=== PATIENT | male | born 1960 | race Caucasian/White ===

== ENCOUNTER 2016-09-06 09:04 | Outpatient (RCR) | payer OTHER ==
--- OUTSIDE RECORDS SUMMARY | 2016-08-30 08:42 | XMS REPORT | Continuity of Care Document ---
Author Author [facility] Organization [facility] Address Unknown Phone Unavailable Care Team Providers Care Missile Mechanic Name Role Phone Ivan Howard PCP [phone] Source Comments Some departments are not documenting in the electronic medical record. If you do not see the information that you expected, contact Release of Information in the Health Information Management department at [phone] for further assistance in locating additional records.[facility] Active Allergies and Adverse Reactions No Known Allergies Current Medications Prescription Sig. Disp. Refills Start End Date Status Date celecoxib (CELEBREX) 200 Take 200 mg by mouth Active mg capsule daily. folic acid (FOLVITE) 1 mg Take 1 mg by mouth daily. Active tablet cholecalciferol (VITAMIN Take 1,000 Units by mouth Active D-3) 1,000 units tablet daily. cyanocobalamin (vitamin Take by mouth daily. Active B-12) (VITAMIN B-12) 1,000 mcg/mL drop flecainide (TAMBOCOR) 50 Take 1 Tab by mouth every 60 Tab 6 12/16/19 Active mg tablet 12 hours. 16 Active Problems Problem Noted Date Near syncope 12/19/2015 SVT (supraventricular tachycardia) (HCC) 10/07/2015 Tachycardia 09/14/2015 Palpitations 09/14/2015 Atrial tachycardia (HCC) 09/14/2015 Overview: 04/22/15: Holter: NSR to bradycardia on holter, PAC's. PAT on holter when sleeping. 05/18/15: Echo: LA size 4cm. LV function normal, EF 60%. Mild MR and TR. PA pressure 30mmHg. 12/15/2015 Attempted SVT RFA Chest pain 09/14/2015 Social History Tobacco Use Types Packs/Day Years Used Date Former Smoker Cigarettes 1.5 30 Smokeless Tobacco: Never Used Comments: Quit in 2011 Alcohol Use Drinks/Week oz/Week Comments No Last Filed Vital Signs Vital Sign Reading Time Taken Blood Pressure 128/80 12/16/2015 7:43 AM DYE WEIGHER HELPER Pulse 54 12/16/2015 7:43 AM DYE WEIGHER HELPER Temperature 36.7 C (98.1 F) 12/15/2015 10:28 PM DYE WEIGHER HELPER Respiratory Rate - - Height 1.778 m (5' 10") 12/15/2015 3:07 PM DYE WEIGHER HELPER Weight 109.77 kg (242 lb) 12/15/2015 3:07 PM DYE WEIGHER HELPER Body Mass Index 34.72 12/15/2015 3:07 PM DYE WEIGHER HELPER Oxygen Saturation 97% 12/16/2015 7:43 AM DYE WEIGHER HELPER Plan of Care Health Maintenance Due Date Last Done Comments Hepatitis C Screening 1959 Physical (Comprehensive) 1966 Exam Pertussis Vaccine 1970 Tetanus Vaccine 1976 Colorectal Cancer 2009 Screening Influenza Vaccine 06/28/2016 Results from Last 3 Months Not on file
[2016-08-30 08:54] LABS: BASOPHILS # (AUTO) 0.1 10^3/uL (0.0-0.1); BASOPHILS % (AUTO) 1 % (0-10); EOSINOPHILS # (AUTO) 0.2 10^3/uL (0.0-0.3); EOSINOPHILS % (AUTO) 3 % (0-10); LYMPHOCYTES # (AUTO) 1.2 X 10^3 (1.0-4.0); LYMPHOCYTES % (AUTO) 21 % (12-44); MEAN CORPUSCULAR HEMOGLOBIN 28 PG (25-34); MEAN CORPUSCULAR HGB CONC 34 G/DL (32-36); MEAN CORPUSCULAR VOLUME 84 FL (80-99); MEAN PLATELET VOLUME 10.7 FL (7.4-10.4); MONOCYTES # (AUTO) 0.5 X 10^3 (0.0-1.0); MONOCYTES % (AUTO) 9 % (0-12); NEUTROPHILS # (AUTO) 3.9 X 10^3 (1.8-7.8); NEUTROPHILS % (AUTO) 66 % (42-75); PLATELET COUNT 178 10^3/uL (130-400); RED BLOOD COUNT 5.51 10^6/uL (4.35-5.85); RED CELL DISTRIBUTION WIDTH 14.5 % (10.0-14.5); WHITE BLOOD COUNT 5.9 10^3/uL (4.3-11.0)
[2016-08-30 09:20] LABS: ALANINE AMINOTRANSFERASE 49 U/L (0-55); ALBUMIN 4.2 G/DL (3.2-4.5); ANION GAP 10 MMOL/L (5-14); ASPARTATE AMINO TRANSFERASE 44 U/L (5-34); BILIRUBIN,TOTAL 0.9 MG/DL (0.1-1.0); BLOOD UREA NITROGEN 21 MG/DL (7-18); BUN/CREATININE RATIO 25; CALCIUM 9.3 MG/DL (8.5-10.1); CARBON DIOXIDE 22 MMOL/L (21-32); CHLORIDE 108 MMOL/L (98-107); CREATININE SERUM 0.85 MG/DL (0.60-1.30); GFR ESTIMATED > 60; GLUCOSE 104 MG/DL (70-105); LACTATE DEHYDROGENASE 290 U/L (125-220); SODIUM 140 MMOL/L (135-145); TOTAL PROTEIN 6.3 G/DL (6.4-8.2)
[2016-09-04 08:39] LABS: 5 HIAA SEROTONIN URINE MG/L 4.2 MG/L; 5 HIAA SEROTONIN URINE RATIO 2 mg/gCR (0-14); 5HIAA CREATININE 218 MG/DL
[2016-09-04 08:40] LABS: 5 HIAA URINE INTERPRETATION SEE FOOTNOTE
[~2016-09-06 09:04] MED LIST: CELE200C PO
[2016-10-17] MEDS ORDERED: ASPI-586 PO (10:39)
[2016-10-17] MEDS ORDERED: CHOL2000 PO (10:39)
[2016-10-17] MEDS ORDERED: FOLI0.8T PO (10:39)
[2016-10-17] MEDS ORDERED: OMEG1CAP58 PO (10:39)
[2016-10-17] MEDS ORDERED: POTA99TA21 PO (10:39)
[2016-10-17] MEDS ORDERED: FAMO-119 PO (10:39)
[2016-10-17] MEDS ORDERED: TICA90TA PO (10:39)
[2016-10-17] MEDS ORDERED: ATOR40TA70 PO (10:39)
[2016-10-19] MEDS ORDERED: PANT40TA3 PO (09:04)
== END 2016-11-28 | disposition home or self-care (01) ==
LOC: ONC 09:04
PROVIDERS: ATTEND Internal Medicine Hematology & Oncology
DX: C7A.098 Malignant carcinoid tumors of other sites (principal)
CPT/HCPCS: 36415; 80053; 83497; 83615; 85025; 86316; 99213

== ENCOUNTER 2017-03-07 09:38 | Outpatient (RCR) | payer OTHER ==
[2017-02-18 10:28] LABS: BASOPHILS # (AUTO) 0.1 10^3/uL (0.0-0.1); BASOPHILS % (AUTO) 2 % (0-10); EOSINOPHILS # (AUTO) 0.1 10^3/uL (0.0-0.3); EOSINOPHILS % (AUTO) 2 % (0-10); LYMPHOCYTES # (AUTO) 1.2 X 10^3 (1.0-4.0); LYMPHOCYTES % (AUTO) 22 % (12-44); MEAN CORPUSCULAR HEMOGLOBIN 28 PG (25-34); MEAN CORPUSCULAR HGB CONC 33 G/DL (32-36); MEAN CORPUSCULAR VOLUME 84 FL (80-99); MEAN PLATELET VOLUME 10.5 FL (7.4-10.4); MONOCYTES # (AUTO) 0.5 X 10^3 (0.0-1.0); MONOCYTES % (AUTO) 9 % (0-12); NEUTROPHILS # (AUTO) 3.7 X 10^3 (1.8-7.8); NEUTROPHILS % (AUTO) 66 % (42-75); PLATELET COUNT 185 10^3/uL (130-400); RED BLOOD COUNT 5.64 10^6/uL (4.35-5.85); RED CELL DISTRIBUTION WIDTH 14.5 % (10.0-14.5); WHITE BLOOD COUNT 5.6 10^3/uL (4.3-11.0)
[2017-02-18 10:56] LABS: ALANINE AMINOTRANSFERASE 44 U/L (0-55); ALBUMIN 4.5 G/DL (3.2-4.5); ANION GAP 7 MMOL/L (5-14); ASPARTATE AMINO TRANSFERASE 31 U/L (5-34); BILIRUBIN,TOTAL 1.2 MG/DL (0.1-1.0); BLOOD UREA NITROGEN 20 MG/DL (7-18); BUN/CREATININE RATIO 22; CALCIUM 9.5 MG/DL (8.5-10.1); CARBON DIOXIDE 28 MMOL/L (21-32); CHLORIDE 105 MMOL/L (98-107); CREATININE SERUM 0.92 MG/DL (0.60-1.30); GFR ESTIMATED > 60; GLUCOSE 107 MG/DL (70-105); LACTATE DEHYDROGENASE 267 U/L (125-220); POTASSIUM 4.7 MMOL/L (3.6-5.0); SODIUM 140 MMOL/L (135-145)
[2017-02-25 08:15] LABS: 5 HIAA SEROTONIN URINE MG/L 3.9 MG/L; 5 HIAA SEROTONIN URINE RATIO 2 mg/gCR (0-14); 5HIAA CREATININE 193 MG/DL; CREATININE SEROTONIN 2220 H MG/D (800-2100)
[2017-02-25 08:16] LABS: 5 HIAA URINE INTERPRETATION SEE FOOTNOTE
[~2017-03-07 09:38] MED LIST changes: +ASPI-586 PO; +ATOR40TA70 PO; +CHOL2000 PO; +FAMO-119 PO; +FOLI0.8T PO; +OMEG1CAP58 PO; +PANT40TA3 PO; +POTA99TA21 PO; +TICA90TA PO
== END 2017-05-19 | disposition home or self-care (01) ==
LOC: ONC 09:38
PROVIDERS: ATTEND Internal Medicine Hematology & Oncology
DX: C7A.098 Malignant carcinoid tumors of other sites (principal); M45.9 Ankylosing spondylitis of unspecified sites in spine; I47.1 Supraventricular tachycardia; I25.10 Atherosclerotic heart disease of native coronary artery without angina pectoris; Z79.899 Other long term (current) drug therapy
CPT/HCPCS: 36415; 80053; 83497; 83615; 85025; 86316; 99213

== ENCOUNTER → 2017-09-20 | Outpatient (CLI) | payer OTHER ==
[2017-09-22 14:29] LABS: NUMBER HOURS COLLECTED 24 HOURS; URINE VOLUME REF 2125 ML
[2017-09-24 07:26] LABS: 5 HIAA SEROTONIN URINE MG/L 2.3 MG/L; 5 HIAA SEROTONIN URINE RATIO 2 mg/gCR (0-14); 5HIAA CREATININE 93 MG/DL; CREATININE SEROTONIN 1976 MG/D (800-2100)
[2017-09-24 07:27] LABS: 5 HIAA URINE INTERPRETATION SEE FOOTNOTE
== END ==
LOC: LAB 10:52
PROVIDERS: ATTEND Internal Medicine Hematology & Oncology
DX: C7A.098 Malignant carcinoid tumors of other sites (principal); M45.9 Ankylosing spondylitis of unspecified sites in spine
CPT/HCPCS: 36415; 83497

== ENCOUNTER 2017-09-24 08:44 | Outpatient (RCR) | payer OTHER ==
[2017-09-18 12:00] LABS: BASOPHILS # (AUTO) 0.1 10^3/uL (0.0-0.1); BASOPHILS % (AUTO) 1 % (0-10); EOSINOPHILS # (AUTO) 0.1 10^3/uL (0.0-0.3); EOSINOPHILS % (AUTO) 2 % (0-10); HEMATOCRIT 46 % (40-54); HEMOGLOBIN 15.2 G/DL (13.3-17.7); LYMPHOCYTES # (AUTO) 1.4 X 10^3 (1.0-4.0); LYMPHOCYTES % (AUTO) 23 % (12-44); MEAN CORPUSCULAR HEMOGLOBIN 28 PG (25-34); MEAN CORPUSCULAR HGB CONC 33 G/DL (32-36); MEAN CORPUSCULAR VOLUME 85 FL (80-99); MEAN PLATELET VOLUME 10.7 FL (7.4-10.4); MONOCYTES # (AUTO) 0.5 X 10^3 (0.0-1.0); MONOCYTES % (AUTO) 7 % (0-12); NEUTROPHILS # (AUTO) 4.1 X 10^3 (1.8-7.8); NEUTROPHILS % (AUTO) 67 % (42-75); PLATELET COUNT 165 10^3/uL (130-400); RED BLOOD COUNT 5.39 10^6/uL (4.35-5.85); RED CELL DISTRIBUTION WIDTH 13.7 % (10.0-14.5); WHITE BLOOD COUNT 6.1 10^3/uL (4.3-11.0)
[2017-09-18 12:17] LABS: ALANINE AMINOTRANSFERASE 24 U/L (0-55); ALBUMIN 4.2 GM/DL (3.2-4.5); ALKALINE PHOSPHATASE 77 U/L (40-136); BILIRUBIN,TOTAL 0.9 MG/DL (0.1-1.0); BUN/CREATININE RATIO 23; CALCIUM 9.5 MG/DL (8.5-10.1); CARBON DIOXIDE 25 MMOL/L (21-32); CHLORIDE 109 MMOL/L (98-107); CREATININE SERUM 0.92 MG/DL (0.60-1.30); GFR ESTIMATED > 60; GLUCOSE 109 MG/DL (70-105); POTASSIUM 4.6 MMOL/L (3.6-5.0); SODIUM 142 MMOL/L (135-145); TOTAL PROTEIN 6.9 GM/DL (6.4-8.2)
== END 2017-12-17 | disposition home or self-care (01) ==
LOC: ONC 08:44
PROVIDERS: ATTEND Internal Medicine Hematology & Oncology
DX: C7A.098 Malignant carcinoid tumors of other sites (principal); M45.9 Ankylosing spondylitis of unspecified sites in spine; I47.1 Supraventricular tachycardia; I25.10 Atherosclerotic heart disease of native coronary artery without angina pectoris; Z79.899 Other long term (current) drug therapy
CPT/HCPCS: 80053; 83615; 85025; 86316; 99213

== ENCOUNTER → 2018-08-11 | Outpatient (CLI) | payer OTHER ==
[2018-08-11 09:53] LABS: BASOPHILS # (AUTO) 0.1 10^3/uL (0.0-0.1); BASOPHILS % (AUTO) 1 % (0-10); EOSINOPHILS # (AUTO) 0.2 10^3/uL (0.0-0.3); EOSINOPHILS % (AUTO) 3 % (0-10); HEMATOCRIT 46 % (40-54); HEMOGLOBIN 15.9 G/DL (13.3-17.7); LYMPHOCYTES # (AUTO) 1.3 X 10^3 (1.0-4.0); LYMPHOCYTES % (AUTO) 22 % (12-44); MEAN CORPUSCULAR HEMOGLOBIN 28 PG (25-34); MEAN CORPUSCULAR HGB CONC 35 G/DL (32-36); MEAN CORPUSCULAR VOLUME 82 FL (80-99); MEAN PLATELET VOLUME 10.8 FL (7.4-10.4); MONOCYTES # (AUTO) 0.4 X 10^3 (0.0-1.0); MONOCYTES % (AUTO) 7 % (0-12); NEUTROPHILS # (AUTO) 4.1 X 10^3 (1.8-7.8); NEUTROPHILS % (AUTO) 67 % (42-75); PLATELET COUNT 167 10^3/uL (130-400); RED CELL DISTRIBUTION WIDTH 14.2 % (10.0-14.5); WHITE BLOOD COUNT 6.2 10^3/uL (4.3-11.0)
[2018-08-11 10:52] LABS: ALANINE AMINOTRANSFERASE 32 U/L (0-55); ALBUMIN 4.5 GM/DL (3.2-4.5); ALKALINE PHOSPHATASE 61 U/L (40-136); BILIRUBIN,TOTAL 0.8 MG/DL (0.1-1.0); BUN/CREATININE RATIO 27; CALCIUM 9.5 MG/DL (8.5-10.1); CARBON DIOXIDE 20 MMOL/L (21-32); CHLORIDE 110 MMOL/L (98-107); CHOLESTEROL 108 MG/DL (< 200); CREATININE SERUM 0.88 MG/DL (0.60-1.30); GFR ESTIMATED > 60; GLUCOSE 102 MG/DL (70-105); HDL CHOLESTEROL 42 MG/DL (40-60); POTASSIUM 4.3 MMOL/L (3.6-5.0); SODIUM 141 MMOL/L (135-145); TRIGLYCERIDES 48 MG/DL (<150); VLDL CHOLESTEROL 10 MG/DL (5-40)
== END ==
LOC: LAB 09:37
PROVIDERS: ATTEND Family Medicine
DX: Z00.00 Encounter for general adult medical examination without abnormal findings (principal); E78.5 Hyperlipidemia, unspecified; K21.9 Gastro-esophageal reflux disease without esophagitis
CPT/HCPCS: 36415; 80053; 80061; 84443; 85025

== ENCOUNTER 2018-09-01 08:58 | Outpatient (RCR) | payer OTHER ==
[2018-08-11 09:51] LABS: BASOPHILS # (AUTO) 0.1 10^3/uL (0.0-0.1); BASOPHILS % (AUTO) 1 % (0-10); EOSINOPHILS # (AUTO) 0.2 10^3/uL (0.0-0.3); EOSINOPHILS % (AUTO) 3 % (0-10); HEMATOCRIT 46 % (40-54); HEMOGLOBIN 15.9 G/DL (13.3-17.7); LYMPHOCYTES # (AUTO) 1.3 X 10^3 (1.0-4.0); LYMPHOCYTES % (AUTO) 22 % (12-44); MEAN CORPUSCULAR HEMOGLOBIN 28 PG (25-34); MEAN CORPUSCULAR HGB CONC 35 G/DL (32-36); MEAN CORPUSCULAR VOLUME 82 FL (80-99); MEAN PLATELET VOLUME 10.8 FL (7.4-10.4); MONOCYTES # (AUTO) 0.4 X 10^3 (0.0-1.0); MONOCYTES % (AUTO) 7 % (0-12); NEUTROPHILS # (AUTO) 4.1 X 10^3 (1.8-7.8); NEUTROPHILS % (AUTO) 67 % (42-75); PLATELET COUNT 167 10^3/uL (130-400); RED CELL DISTRIBUTION WIDTH 14.2 % (10.0-14.5); WHITE BLOOD COUNT 6.2 10^3/uL (4.3-11.0)
[2018-08-11 10:10] LABS: ALANINE AMINOTRANSFERASE 33 U/L (0-55); ALBUMIN 4.5 GM/DL (3.2-4.5); ALKALINE PHOSPHATASE 65 U/L (40-136); BILIRUBIN,TOTAL 0.8 MG/DL (0.1-1.0); BUN/CREATININE RATIO 27; CALCIUM 9.5 MG/DL (8.5-10.1); CARBON DIOXIDE 21 MMOL/L (21-32); CHLORIDE 109 MMOL/L (98-107); CREATININE SERUM 0.91 MG/DL (0.60-1.30); GFR ESTIMATED > 60; GLUCOSE 102 MG/DL (70-105); POTASSIUM 4.4 MMOL/L (3.6-5.0); SODIUM 141 MMOL/L (135-145)
[2018-10-22] MEDS ORDERED: PANT40TA3 PO (15:36)
== END 2018-11-09 | disposition home or self-care (01) ==
LOC: ONC 08:58
PROVIDERS: ATTEND Internal Medicine Hematology & Oncology
DX: C7A.098 Malignant carcinoid tumors of other sites (principal); M45.9 Ankylosing spondylitis of unspecified sites in spine; I47.1 Supraventricular tachycardia; I25.10 Atherosclerotic heart disease of native coronary artery without angina pectoris; Z79.899 Other long term (current) drug therapy
CPT/HCPCS: 36415; 80053; 83497; 83615; 85025; 86316; 99213

== ENCOUNTER → 2018-10-13 | Outpatient (CLI) | payer OTHER ==
--- NOTE | 2018-10-08 22:04 | HISTORY AND PHYSICAL ---
DATE OF SERVICE: PANENDOSCOPY HISTORY AND PHYSICAL HISTORY OF PRESENT ILLNESS: The patient is a 58-year-old white male who has a past history of erosive esophagitis. It has also been 10 years since his first screening colonoscopy, which he reported unremarkable. I performed an EGD in 2016, at which time, he has noted to have LA grade B erosive esophagitis. He reports he still has reflux symptoms that wake him up at night if he eats too late at night. It happens a couple of times a month despite taking pantoprazole 40 mg each evening. He denies dysphagia, weight loss, melena or bright red blood per rectum. He reports that his weight has been stable. PAST MEDICAL HISTORY: Significant for coronary artery disease. He had three drug-eluting stents placed in the same artery in 2016. At that time, he had an estimated ejection fraction of 60%. 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 He completed a year of Brilinta and aspirin and now is on aspirin alone with no subsequent problems with acute coronary syndrome and he denies angina. He has history of hyperlipidemia, for which he takes atorvastatin. Past medical history is also significant for long-standing ankylosing spondylitis. He takes 200 mg of Celebrex daily for this with reasonable control of his symptoms. He has past history of SVT. They were unable to ablate of this. He has been able to take care of symptoms with home vagal maneuvers for the most part with use at least one short recurrence per month, but has not required emergency room visitation. 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 He had 30 plus pack year smoking history, but quit 5 years ago. He reports no significant alcohol intake. FAMILY HISTORY: Father is living at age of 94 with a history of skin cancer. Mother had apparent biliary tract cancer, living at the age of 88. PHYSICAL EXAMINATION: GENERAL: Reveals a pleasant white male, appears to be in no acute distress. VITAL SIGNS: Blood pressure was 130/64, weight 241.8 pounds, up 2 pounds from 2 years ago. HEENT: Oropharyngeal configuration is that of a Mallampati class 2. Pharynx reveals no evidence for erythema. CHEST: Clear to auscultation. CARDIOVASCULAR: Reveals a regular rate and rhythm without murmur, S3 or S4. ABDOMEN: Soft, supple without mass, organomegaly or tenderness. Bowel sounds are positive. EXTREMITIES: Reveal no cyanosis, clubbing or edema. ASSESSMENT AND PLAN: The patient is being set up for screening colonoscopy on 10/24/2018 as well as diagnostic EGD due to persistent reflux symptoms with past history of erosive esophagitis despite proton pump inhibitor therapy. Prep instructions with the Suprep kit were given and questions were answered. I thank you for the referral of this pleasant gentleman. Job ID: [id number] DocumentID: [id number] Dictated Date: 10/08/2018 20:59:45 Kiln Setter Date: 10/08/2018 22:03:42 Dictated By: MORGAN HAHN MD
== END ==
LOC: CARD 10:13
PROVIDERS: ATTEND Physician Assistant
DX: I25.10 Atherosclerotic heart disease of native coronary artery without angina pectoris (principal); R07.9 Chest pain, unspecified; I47.1 Supraventricular tachycardia; D3A.8 Other benign neuroendocrine tumors
CPT/HCPCS: 93306

== ENCOUNTER → 2018-10-15 | Outpatient (CLI) | payer OTHER ==
[~2018-10-15] VITALS: Ht 177.8 cm; Wt 111.6 kg
[~2018-10-15] MED LIST changes: +CATHETER FLUSH 10 ML SYR IV PRN
[2018-10-15 09:19] VITALS: BP 115/71
[2018-10-15 09:27] VITALS: BP 193/71
--- NOTE | 2018-10-15 18:43 | STRESS TEST ---
DATE OF SERVICE: 10/15/2018 EXERCISE MYOVIEW STRESS TEST REPORT REFERRING PHYSICIAN: Dr. Sorto. Baseline heart rate is 45. Baseline blood pressure 150/71. Baseline EKG sinus rhythm with no ischemic changes. In summary, the patient was injected with 10.41 mCi of technetium-99 Myoview and the resting images were obtained. Then, the patient started exercising with a baseline heart rate, blood pressure and EKG mentioned above. At minute 7 and 30 seconds, the patient was injected with 30.8 mCi of technetium-99 Myoview. The patient was able to exercise for a total of 8 minutes and 30 seconds on standard Betito protocol. With peak exercise level, EKG was showing [address] depression in II, III, aVF and [address] depression in V3, V4, V5 and V6. Blood pressure was 197/99. During recovery, heart rate and blood pressure returned to baseline. EKG returned to baseline. The resting and stressed images were reviewed and compared in the short axis, horizontal long axis, and vertical long axis views. Review of the images showed diaphragmatic attenuation with reversible ischemia involving the mid to apical anterolateral wall, subtle reversibility was noted. SSS is 2, SDS 2, TID value 1.03. On the gated images, the left ventricle appeared to be prominent with preserved systolic function. Calculated ejection fraction 65%. CONCLUSION: 1. Good exercise tolerance, a total of 8 minutes 30 seconds on standard Betito protocol, total of 10.3 METS achieving 91% of maximum expected heart rate. 2. Severe hypertensive response to exercise, returned to baseline during recovery. 3. EKG changes with exercise suggestive of ischemia. 4. Mild ischemic changes on SPECT images involving the mid to apical anterolateral wall. 5. Normal left ventricular size with normal contractility. Calculated ejection fraction 65%. Job ID: [id number] DocumentID: [id number] Dictated Date: 10/15/2018 13:24:58 Rehab Services Aide Date: 10/15/2018 18:43:13 Dictated By: MARCUS DYER MD
== END ==
LOC: CARD 07:46
PROVIDERS: ATTEND Internal Medicine Cardiovascular Disease
DX: I25.10 Atherosclerotic heart disease of native coronary artery without angina pectoris (principal); R07.9 Chest pain, unspecified; I47.1 Supraventricular tachycardia; D3A.8 Other benign neuroendocrine tumors
CPT/HCPCS: 78452; 93017

== ENCOUNTER 2018-10-22 15:30 | Outpatient (CLI) | payer OTHER ==
[~2018-10-22] VITALS: Ht 177.8 cm; Wt 109.3 kg
[~2018-10-22 15:30] MED LIST changes: -CATHETER FLUSH 10 ML SYR IV PRN
[2018-10-22] MEDS ORDERED: PANT40TA3 PO (15:36)
== END 2018-10-22 15:39 | disposition home or self-care (01) ==
LOC: PREOP 15:30
PROVIDERS: ATTEND Internal Medicine
DX: Z01.818 Encounter for other preprocedural examination (principal)

== ENCOUNTER 2018-10-24 07:28 | Day surgery (SDC) | payer OTHER ==
[~2018-10-24] VITALS: Ht 177.8 cm; Wt 109.3 kg
[2018-10-24] MEDS ORDERED: ATROPINE INJ 0.4 MG/ML SDV IV ONE ×2 (07:29→10:00)
[2018-10-24] MEDS ORDERED: D5 LR IV SOLUTION 1,000 ML IV ONE (07:32)
[2018-10-24] MEDS ORDERED: D5 LR IV SOLUTION 1,000 ML IV STA (07:33)
[2018-10-24 07:35] VITALS: BP 135/79
[2018-10-24] MEDS ORDERED: LIDOCAINE JELLY 2% 6 ML SYRINGE MM PRN (07:45)
[2018-10-24] MEDS ORDERED: MIDAZOLAM 2 MG/2 ML (VERSED) VIAL IVP ONE (07:45)
[2018-10-24] MEDS ORDERED: fentaNYL INJECTION 100 MCG/2 ML AMP IVP ONE (07:45)
[2018-10-24] MEDS ORDERED: MIDAZOLAM 2 MG/2 ML (VERSED) VIAL ONE ×3 (08:03→08:04)
[2018-10-24] MEDS ORDERED: fentaNYL INJECTION 100 MCG/2 ML AMP ONE (08:03)
[2018-10-24] MEDS ORDERED: LIDOCAINE JELLY 2% 6 ML SYRINGE ONE (08:03)
[2018-10-24] MEDS ORDERED: HURRICAINE EXT TUBE (BENZOCAINE) ONE (08:04)
--- NOTE | 2018-10-24 08:40 | Pre-Op Note & Conscious Sedat ---
Pre-Operative Progress Note H&P Reviewed The H&P was reviewed, patient examined and no changes noted. Date H&P Reviewed: Oct 24, 2018 Time H&P Reviewed: 07:45 Conscious Sedation Pre-Proced ASA Score 2 For ASA 3 and 4: Consider anesthesia and medical clearance. Also, for patients with a history of failed moderate sedation consider anesthesia. Airway Lungs Heart ASA score ASA 1: a normal healthy patient ASA 2: a patient with a mild systemic disease (mid diabetes, controlled hypertension, obesity ASA 3: a patient with a severe systemic disease that limits activity (angina , COPD, prior Myocardial infarction) ASA 4: a patient with an incapacitating disease that is a constant threat to life (CHF, renal failure) ASA 5: a moribund patient not expected to survive 24 hrs. (ruptured aneurysm) ASA 6: a declared brain patient whose organs are being harvested. For emergent operations, add the letter E after the classification Mallampati Classification Grade 2 Sedation Plan Analgesia, Amnesia, Plan communicated to team members, Discussed options with patient/fam, Discussed risks with patient/fam The patient is an appropriate candidate to undergo the planned procedure, sedation, and anesthesia. The patient immediately re-assessed prior to indication. MORGAN HAHN MD Oct 24, 2018 08:40
[2018-10-24 09:30] VITALS: BP 129/72
[2018-10-24] MEDS ORDERED: HURRICAINE EXT TUBE (BENZOCAINE) XX ONE (09:30)
[2018-10-24 10:00] VITALS: BP 116/86
[2018-10-24 10:10] VITALS: BP 116/86
--- NOTE | 2018-10-25 00:47 | OPERATIVE REPORT ---
DATE OF SERVICE: PANENDOSCOPY SUMMARY REFERRING PHYSICIAN: Tricia Sorto MD INDICATION FOR THE PROCEDURE: The patient underwent screening colonoscopy and diagnostic EGD due to past history of erosive esophagitis and ongoing intermittent heartburn symptoms despite proton pump inhibitor therapy in the form of Protonix that he takes each morning daily 40 mg. The patient was placed in the left lateral decubitus position. Prior to any colonoscopy, digital rectal evaluation was performed. Anal sphincter tone was normal and the perianal reflex was intact. Prostate is mildly enlarged, anodular and nontender to digital inspection. No other abnormalities, no additional digital inspection of the anal canal or distal rectal vault. The colonoscope was then inserted into the rectum under direct visualization advanced to cecum. Cecum was identified by identification of the ileocecal valve and cecal strap. Photographic documentation was obtained. A careful inspection was made as the colonoscope was withdrawn and the quality of prep was good. FINDINGS: There was no evidence for internal or external hemorrhoids and the rectum was unremarkable. Present in the mid sigmoid colon was a diminutive polyp. It was photographed and biopsied and ablated with no subsequent blood loss. No evidence for diverticular disease was identified. The descending colon, splenic flexure, transverse colon, hepatic flexure, ascending colon and cecum were unremarkable. FINDINGS: 1. Digital rectal evaluation was compatible with mild BPH without evidence for nodularity. 2. One diminutive polyp was removed from the mid sigmoid colon as long as there are no surprise on histopathology report, as the patient reports no family history for colon cancer, would advise consideration for repeat screening colonoscopy in 10 years. We then proceeded with EGD evaluation. The endoscope was inserted in the oral cavity and under direct visualization, the esophagus was intubated. The scope was passed down the esophagus through the stomach and second portion of the duodenum. Careful inspection was made as the endoscope was withdrawn. The patient tolerated the procedure well. FINDINGS: The posterior hypopharynx, arytenoid aperture and true and false vocal folds were unremarkable. Proximal, mid and distal esophagus was essentially unremarkable. There is a little bit of erythema along one margin of the Z line, but no evidence for erosive esophagitis. A small to medium size hiatal hernia was present. The cardia of the stomach was unremarkable. There was a 6 mm fundal appearing polyp in the mid portion of the fundus along the greater curvature. It was photographed and biopsied and ablated and submitted for histopathology. The remainder of the stomach was unremarkable. The pylorus, pyloric channel, duodenal bulb and second portion of duodenum were unremarkable with no evidence for peptic ulcer disease or duodenitis. ASSESSMENT: A small to medium size hiatal hernia was present without evidence for erosive esophagitis. The patient was advised to continue proton pump inhibitor therapy. Predominantly it is only when he overeats later at night that he will have heartburn. Discussed the importance of avoiding this, and p.r.n. antacid therapy when he does have nighttime symptoms. Considering lack of erosive esophagitis and infrequent symptoms did not recommend intensifying to b.i.d. PPI therapy at this time. A small fundal appearing polyp was biopsied and ablated. As long as there are no surprise on histopathology would not recommend future surveillance EGD. I thank you for the referral of this pleasant gentleman. Job ID: [id number] DocumentID: [id number] Dictated Date: 10/24/2018 12:13:48 Counter Clerk Date: 10/25/2018 00:46:00 Dictated By: MORGAN HAHN MD [facility]
== END 2018-10-24 10:10 | disposition home or self-care (01) ==
LOC: ENDO 07:28
PROVIDERS: ATTEND Internal Medicine
DX: Z12.11 Encounter for screening for malignant neoplasm of colon (principal); K63.5 Polyp of colon; K31.7 Polyp of stomach and duodenum; K21.9 Gastro-esophageal reflux disease without esophagitis; K44.9 Diaphragmatic hernia without obstruction or gangrene; N40.0 Benign prostatic hyperplasia without lower urinary tract symptoms; I25.10 Atherosclerotic heart disease of native coronary artery without angina pectoris; E78.5 Hyperlipidemia, unspecified; M45.9 Ankylosing spondylitis of unspecified sites in spine; Z95.5 Presence of coronary angioplasty implant and graft; Z79.82 Long term (current) use of aspirin; Z79.899 Other long term (current) drug therapy; Z87.891 Personal history of nicotine dependence

== ENCOUNTER 2019-04-08 05:41 | Outpatient (CLI) | payer OTHER ==
[~2019-04-08] VITALS: Ht 177.8 cm; Wt 109.3 kg
[2019-04-08] MEDS ORDERED: META800T PO (13:25)
[2019-04-08] MEDS ORDERED: ASPI-999 PO (13:25)
[2019-04-08] MEDS ORDERED: CYAN250010 PO (13:25)
== END 2019-04-08 13:40 | disposition home or self-care (01) ==
LOC: PREOP 05:41
PROVIDERS: ATTEND Orthopaedic Surgery
DX: Z01.818 Encounter for other preprocedural examination (principal)

== ENCOUNTER 2019-04-15 07:56 | Day surgery (SDC) | payer OTHER ==
--- NOTE | 2019-04-06 13:12 | HISTORY AND PHYSICAL ---
DATE OF SERVICE: DATE OF ADMISSION: 04/15/2019. This will be for outpatient surgery on 04/15/2019 for right hip injection. HISTORY OF PRESENT ILLNESS: The patient is a 58-year-old gentleman with progressively worsening right hip and groin pain. He has tried rest and activity modifications without relief. He has been evaluated by Dr. Marie . He reports progressive symptoms and loss of function. Does not desire total hip arthroplasty and has elected to proceed with a hip intra-articular injection provide temporary relief of symptoms. REVIEW OF SYSTEMS: No chest pain. No shortness of breath. No dysuria. PAST MEDICAL HISTORY: Coronary artery disease. PAST SURGICAL HISTORY: Coronary stents. FAMILY HISTORY: Significant for ischemic heart disease. PRIMARY CARE PROVIDER: Dr. Sorto. MEDICATIONS: Celebrex, atorvastatin, pantoprazole, aspirin, omega 3, potassium, folic acid. ALLERGIES: No known drug allergies. SOCIAL HISTORY: The patient is a former smoker. Denies alcohol use. PHYSICAL EXAMINATION: GENERAL: The patient is a well-developed, well-nourished, in no acute distress. HEENT: Normocephalic, atraumatic. Pupils equal, round, reactive to light. Oropharynx is clear. NECK: Supple, no lymphadenopathy. LUNGS: Clear to auscultation bilaterally. HEART: Regular rate and rhythm. ABDOMEN: Soft, nontender, nondistended. EXTREMITIES: The right hip demonstrates tenderness with internal rotation which is to neutral. He has pain with FADIR maneuver. External rotation is 30 degrees. He has negative straight leg raise. IMPRESSION: Right hip osteoarthritis. PLAN: Right hip intra-articular injection. The risks, benefits, options, ramifications and recovery were discussed at length with the patient. He understands and wished to proceed. Job ID: [id number] DocumentID: [id number] Dictated Date: 04/06/2019 11:31:30 Sales Closer Date: 04/06/2019 13:11:58 Dictated By: PREMA MUNOZ MD
[~2019-04-15] VITALS: Ht 177.8 cm; Wt 105.9 kg
[2019-04-15] VITALS (8 sets, daily range): BP systolic 107–149; BP diastolic 41–89
[~2019-04-15 07:56] MED LIST changes: +ASPI-999 PO; +CYAN250010 PO; +META800T PO
[2019-04-15] MEDS ORDERED: methylPREDNISolone 40 MG/ML (DEPO MEDROL) VIAL ONE (08:41)
[2019-04-15] MEDS ORDERED: LIDOCAINE 1% INJ 20 ML 20 ML VIAL ONE (08:41)
[2019-04-15] MEDS ORDERED: BUPIVACAINE 0.25% 30 ML (SENSORCAINE) VIAL ONE (08:41)
[2019-04-15] MEDS ORDERED: IOPAMIDOL 61% 30 ML (ISOVUE 300) VIAL IV ONE (09:16)
--- NOTE | 2019-04-15 09:23 | Progress Note-Pre Operative ---
Pre-Operative Progress Note H&P Reviewed The H&P was reviewed, patient examined and no changes noted. Date Seen by Provider: Apr 15, 2019 Time Seen by Provider: :23 Date H&P Reviewed: Apr 15, 2019 Time H&P Reviewed: :23 Pre-Operative Diagnosis: right hip primary osteoarthritis PREMA MUNOZ MD Apr 15, 2019 09:23
--- NOTE | 2019-04-15 09:24 | Progress Note-Post Operative ---
Post-Operative Progess Note Surgeon (s)/Debrander (s) Surgeon PREMA MUNOZ MD Debrander: none Pre-Operative Diagnosis right hip primary osteoarthritis Post-Operative Diagnosis right hip promary osteoarthritis Procedure & Operative Findings Date of Procedure 04/15/19 Procedure Performed/Findings right hip intraarticular injection Anesthesia Type MAC plus local Estimated Blood Loss Estimated blood loss (mL): minimal Specimens/Packing Specimens Removed none Packing: none PREMA MUNOZ MD Apr 15, 2019 09:24
[2019-04-15] MEDS ORDERED: HYDR-4226 PO (09:57)
--- NOTE | 2019-04-15 11:00 | NUR ---
VERBAL ORDER TO REQUEST XRAY IMAGING TO BE LOADED TO OUR CLOUD FROM [facility]. FAXED REQUEST TO [facility]
[2019-04-15] MEDS ORDERED: LACTATED RINGERS 1,000 ML IV PRN (12:03)
--- NOTE | 2019-04-15 12:59 | Anesthesia-General Post-Op ---
MAC Patient Condition Mental Status/LOC: Same as Preop Cardiovascular: Satisfactory Nausea/Vomiting: Absent Respiratory: Satisfactory Pain: Controlled Complications: Absent Post Op Complications Complications None Follow Up Care/Instructions Patient Instructions None needed. Anesthesiology Discharge Order Discharge Order Patient is doing well, no complaints, stable vital signs, no apparent adverse anesthesia problems. No complications reported per nursing. AMARILIS BRYANT CRNA Apr 15, 2019 12:59
--- NOTE | 2019-04-15 14:12 | OPERATIVE REPORT ---
DATE OF SERVICE: 04/15/2019 PREOPERATIVE DIAGNOSIS: Right hip primary osteoarthritis. POSTOPERATIVE DIAGNOSIS: Right hip primary osteoarthritis. PROCEDURE: Right hip intraarticular injection. SURGEON: Ferdinand Munoz MD DIRECTOR DIGITAL SALES: None. ANESTHESIA: Monitored anesthesia care by Breanne Goldstein CRNA. ESTIMATED BLOOD LOSS: Minimal. DRAINS: None. COMPLICATIONS: None. POSTOPERATIVE PLAN: No impact activities for 24 hours. The patient was transported to the recovery room awake and in stable condition. STATEMENT OF MEDICAL NECESSITY: The patient is a 58-year-old gentleman with known osteoarthritis of his right hip. He does not desire total hip arthroplasty as of yet and elected to proceed with an intra-articular injection to try to provide symptomatic relief. DESCRIPTION OF PROCEDURE: After risks and benefits of procedure were discussed and questions were answered, an informed consent was signed and placed on the chart. The operative site was confirmed in the preoperative holding area initialed by the surgeon. The patient was then transferred to the operating room and after adequate levels of monitored anesthesia care obtained, timeout was called, confirming the operative site. The right hip was prepped and draped in the usual sterile fashion. The lateral aspect of the hip was then infiltrated with combination of plain lidocaine and plain Marcaine. Under fluoroscopic guidance, a spinal needle was passed intraarticularly and this was confirmed intra-articular with an arthrogram. Hip joint was then injected with 80 mg of Depo-Medrol and 2 mL of Marcaine. The needle was withdrawn. Band-Aid was applied and the patient was transported to the recovery room awake and in stable condition. Job ID: [id number] DocumentID: [id number] Dictated Date: 04/15/2019 09:53:47 Air Carrier Operations Inspector Date: 04/15/2019 14:11:37 Dictated By: FERDINAND MUNOZ MD
--- NOTE | 2019-04-15 18:38 | Diagnostic Imaging Report ---
INDICATION: Fluoroscopy during right hip injection. Fluoroscopy was provided in the OR during right hip injection. 12 seconds of fluoroscopy was utilized. Single image demonstrates a needle at the femoral head neck junction with injection of a small amount of intra-articular contrast. IMPRESSION: Fluoroscopy during right hip injection. Dictated by: Dictated on workstation # [id number]
== END 2019-04-15 11:50 | disposition home or self-care (01) ==
LOC: SDC 07:56
PROVIDERS: ATTEND Orthopaedic Surgery
DX: M16.11 Unilateral primary osteoarthritis, right hip (principal); Z11.2 Encounter for screening for other bacterial diseases; I25.119 Atherosclerotic heart disease of native coronary artery with unspecified angina pectoris; I10 Essential (primary) hypertension; E78.5 Hyperlipidemia, unspecified; K21.9 Gastro-esophageal reflux disease without esophagitis; Z95.5 Presence of coronary angioplasty implant and graft; Z82.49 Family history of ischemic heart disease and other diseases of the circulatory system; Z79.82 Long term (current) use of aspirin; Z79.899 Other long term (current) drug therapy; Z87.891 Personal history of nicotine dependence
CPT/HCPCS: 87081

== ENCOUNTER 2019-04-16 14:31 | Outpatient (RCR) | payer OTHER ==
[~2019-04-16 14:31] MED LIST changes: +HYDR-4226 PO
== END 2019-07-01 | disposition home or self-care (01) ==
DX: M54.5 Low back pain (principal); M25.551 Pain in right hip

== ENCOUNTER 2019-09-08 09:34 | Outpatient (RCR) | payer OTHER ==
[2019-08-17 12:18] LABS: BASOPHILS # (AUTO) 0.1 10^3/uL (0.0-0.1); BASOPHILS % (AUTO) 2 % (0-10); EOSINOPHILS # (AUTO) 0.3 10^3/uL (0.0-0.3); EOSINOPHILS % (AUTO) 6 % (0-10); HEMATOCRIT 48 % (40-54); HEMOGLOBIN 15.7 G/DL (13.3-17.7); LYMPHOCYTES # (AUTO) 1.4 X 10^3 (1.0-4.0); LYMPHOCYTES % (AUTO) 24 % (12-44); MEAN CORPUSCULAR HEMOGLOBIN 27 PG (25-34); MEAN CORPUSCULAR HGB CONC 33 G/DL (32-36); MEAN CORPUSCULAR VOLUME 83 FL (80-99); MEAN PLATELET VOLUME 10.9 FL (7.4-10.4); MONOCYTES # (AUTO) 0.4 X 10^3 (0.0-1.0); MONOCYTES % (AUTO) 7 % (0-12); NEUTROPHILS # (AUTO) 3.6 X 10^3 (1.8-7.8); NEUTROPHILS % (AUTO) 61 % (42-75); PLATELET COUNT 178 10^3/uL (130-400); RED CELL DISTRIBUTION WIDTH 14.3 % (10.0-14.5); WHITE BLOOD COUNT 5.8 10^3/uL (4.3-11.0)
[2019-08-17 12:46] LABS: ALANINE AMINOTRANSFERASE 33 U/L (0-55); ALBUMIN 4.6 GM/DL (3.2-4.5); ALKALINE PHOSPHATASE 87 U/L (40-136); BILIRUBIN,TOTAL 0.9 MG/DL (0.1-1.0); BUN/CREATININE RATIO 18; CALCIUM 9.6 MG/DL (8.5-10.1); CARBON DIOXIDE 28 MMOL/L (21-32); CHLORIDE 106 MMOL/L (98-107); CREATININE SERUM 0.98 MG/DL (0.60-1.30); GFR ESTIMATED > 60; GLUCOSE 93 MG/DL (70-105); POTASSIUM 4.7 MMOL/L (3.6-5.0); SODIUM 139 MMOL/L (135-145); TOTAL PROTEIN 7.1 GM/DL (6.4-8.2)
== END 2019-11-15 | disposition home or self-care (01) ==
LOC: ONC 09:34
PROVIDERS: ATTEND Internal Medicine Hematology & Oncology
DX: C7A.098 Malignant carcinoid tumors of other sites (principal); M45.9 Ankylosing spondylitis of unspecified sites in spine; I47.1 Supraventricular tachycardia; I25.10 Atherosclerotic heart disease of native coronary artery without angina pectoris; Z79.899 Other long term (current) drug therapy
CPT/HCPCS: 36415; 80053; 83497; 83615; 85025; 86316; 99213

== ENCOUNTER → 2020-08-16 | Outpatient (CLI) | payer OTHER ==
[~2020-08-16] MED LIST changes: -PANT40TA3 PO; +PANT40TA52 PO
[2020-08-16 14:49] LABS: CHOLESTEROL 105 MG/DL (< 200); HDL CHOLESTEROL 44 MG/DL (40-60); TRIGLYCERIDES 35 MG/DL (<150); VLDL CHOLESTEROL 7 MG/DL (5-40)
== END ==
LOC: LAB 13:21
PROVIDERS: ATTEND Family Medicine
DX: E78.2 Mixed hyperlipidemia (principal)
CPT/HCPCS: 36415; 80061

== ENCOUNTER 2020-09-06 08:57 | Outpatient (RCR) | payer OTHER ==
[2020-08-16 13:23] LABS: BASOPHILS # (AUTO) 0.1 10^3/uL (0.0-0.1); BASOPHILS % (AUTO) 2 % (0-10); EOSINOPHILS # (AUTO) 0.2 10^3/uL (0.0-0.3); EOSINOPHILS % (AUTO) 3 % (0-10); HEMATOCRIT 48 % (40-54); HEMOGLOBIN 15.3 g/dL (13.3-17.7); LYMPHOCYTES # (AUTO) 1.4 10^3/uL (1.0-4.0); LYMPHOCYTES % (AUTO) 22 % (12-44); MEAN CORPUSCULAR HEMOGLOBIN 28 pg (25-34); MEAN CORPUSCULAR HGB CONC 32 g/dL (32-36); MEAN CORPUSCULAR VOLUME 87 fL (80-99); MEAN PLATELET VOLUME 10.6 fL (9.0-12.2); MONOCYTES # (AUTO) 0.4 10^3/uL (0.0-1.0); MONOCYTES % (AUTO) 7 % (0-12); NEUTROPHILS % (AUTO) 65 % (42-75); PLATELET COUNT 179 10^3/uL (130-400); WHITE BLOOD COUNT 6.2 10^3/uL (4.3-11.0)
[2020-08-16 13:44] LABS: ALANINE AMINOTRANSFERASE 51 U/L (0-55); ALBUMIN 4.1 GM/DL (3.2-4.5); ALKALINE PHOSPHATASE 69 U/L (40-136); BILIRUBIN,TOTAL 0.7 MG/DL (0.1-1.0); BUN/CREATININE RATIO 25; CALCIUM 8.8 MG/DL (8.5-10.1); CARBON DIOXIDE 27 MMOL/L (21-32); CHLORIDE 106 MMOL/L (98-107); CREATININE SERUM 0.84 MG/DL (0.60-1.30); GFR ESTIMATED > 60; GLUCOSE 105 MG/DL (70-105); POTASSIUM 4.7 MMOL/L (3.6-5.0); SODIUM 138 MMOL/L (135-145); TOTAL PROTEIN 6.5 GM/DL (6.4-8.2)
== END 2020-11-14 | disposition home or self-care (01) ==
LOC: ONC 08:57
PROVIDERS: ATTEND Internal Medicine Hematology & Oncology
DX: C7A.098 Malignant carcinoid tumors of other sites (principal)
CPT/HCPCS: 80053; 83497; 83615; 85025; 86316; 99213

== ENCOUNTER → 2021-09-07 | Outpatient (CLI) | payer OTHER ==
[~2021-09-07] MED LIST changes: -FOLI0.8T PO; +FOLI0.8T4 PO; -POTA99TA21 PO; +POTA99TA26 PO
== END ==
LOC: EDSTATUS 08-24 11:44 → ONC 11:13
PROVIDERS: ATTEND Internal Medicine Hematology & Oncology
DX: I25.10 Atherosclerotic heart disease of native coronary artery without angina pectoris (principal); I65.29 Occlusion and stenosis of unspecified carotid artery; I10 Essential (primary) hypertension; E78.5 Hyperlipidemia, unspecified; E66.9 Obesity, unspecified; Z68.35 Body mass index [BMI] 35.0-35.9, adult
CPT/HCPCS: 99213